=== PATIENT | female | born 1975 | race African-American/Black ===

== ENCOUNTER 2017-06-29 07:00 | Emergency (ER) | payer OTHER ==
[~2017-06-29] VITALS: Ht 167.6 cm; Wt 95.3 kg
[2017-06-29] MEDS ORDERED: K-DUR 20 MEQ T20 MEQ PO (07:45)
[2017-06-29] MEDS ORDERED: IRON325 PO (07:46)
[2017-06-29] MEDS ORDERED: METFORMIN HCL500 MG PO (07:46)
[2017-06-29] MEDS ORDERED: ERGOCALCIF50000 UNIT PO (07:46)
[2017-06-29] MEDS ORDERED: NORVASC5 MG PO (07:47)
[2017-06-29] MEDS ORDERED: CHLORTHALIDONE25 MG PO (07:47)
[2017-06-29] MEDS ORDERED: NAPROSYN500 MG PO (08:07)
[2017-06-29 08:40] VITALS: BP 135/98
== END 2017-06-29 08:41 | disposition home or self-care (01) ==
LOC: ER 07:00
DX: S40.022A Contusion of left upper arm, initial encounter (principal); I10 Essential (primary) hypertension; E11.9 Type 2 diabetes mellitus without complications; V48.0XXA Car driver injured in noncollision transport accident in nontraffic accident, initial encounter; Y93.89 Activity, other specified; Y92.89 Other specified places as the place of occurrence of the external cause; Y99.8 Other external cause status